=== PATIENT | male | born 2000 | race Caucasian/White ===

== ENCOUNTER 2019-02-18 21:09 | Emergency (ER) | payer OTHER ==
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
[2019-02-18 23:07] VITALS: BP 128/97
== END 2019-02-18 23:11 | disposition home or self-care (01) ==
DX: F07.81 Postconcussional syndrome (principal); V19.9XXA Pedal cyclist (driver) (passenger) injured in unspecified traffic accident, initial encounter; Y93.55 Activity, bike riding